=== PATIENT | female | born 1950 | race Caucasian/White ===

== ENCOUNTER 2024-08-11 08:01 | Day surgery (SDC) | payer MEDICARE, MEDICAID, SELFPAY ==
--- NOTE | 2024-07-24 15:26 | PC.NURSE ---
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 Pt daughter missed call from pre-op today from [facility]. I gave pt daughter (Liliya) phone number to pre-op to call them back, states she will call back tomorrow 07/25/24. Pt daughter is aware pt needs to hold pt's blood thinner, Eliquis, prior to surgery starting on 08/07/24, verbalized understanding of date to hold medication. When orders were send to [facility] I requested results be faxed back to PM office with fax number given.
[2024-07-25 13:58] VITALS: BMI 19.9
[2024-08-11 08:29] VITALS: BP 113/83; PULSE 102; RESP 17; TEMP 37.1; O2SAT 96
[2024-08-11] MEDS: LACTATED RINGERS 1000ML 1,000 ML 25 ML IV (08:38)
[2024-08-11] MEDS: VANCOMYCIN HCL 750 MG in 0.9 % SODIUM CHLORIDE 250 ML 125 MG IV (09:26)
--- NOTE | 2024-08-11 09:42 | EXP.ANES.CKL ---
[facility] Disclaimer: The information contained in this section may have been updated after the patient was seen, as this information can be updated by other users. Medical History Lung cancer HTN (hypertension) Dementia H/O deep venous thrombosis Surgical History History of hip surgery Family History Other Family history of cancer Social History Smoking Status: Current every day smoker alcohol intake: never substance use type: denies use current occupational status: disabled Travel in the last 8 weeks: None [facility] Anesthesia Checklist Patient Identification Patient Identification: Arm Band and Family Structural Data Admitted From: Home Planned Operative Procedure/s: T-12 Kyphoplasty Consent for Planned Operative Procedure(s) Verified: Yes Verified Documents: Surgical Consent and History and Physical NPO Status Verified Time NPO: 00:00 Additional verifications Anesthesia Reactions: No Hx Blood Transfusions: No Blood Transfusion Reaction: No Airway Assessment Mallampati Score:: Class II C-Spine Mobility Assessed: Yes TMJ Mobility Assessed: Yes Dentition: Good Dentition Neurological Assessment Level of Consciousness: Awake, Alert and Appropriate Anesthesia Plan Anesthesia Risk discussed: Yes Anesthesia Plan: Verified ASA Class: III Anesthesia Type: MAC
[2024-08-11] MEDS: LIDOCAINE 1% W/EPI 1:100,000 20ML VIAL 40 ML (11:11)
[2024-08-11 12:09] VITALS: BP 108/52; PULSE 101; RESP 22; TEMP 36.2; O2SAT 93
[2024-08-11 12:19] VITALS: BP 117/61; PULSE 80; RESP 20; O2SAT 96
[2024-08-11 12:29] VITALS: BP 142/67; PULSE 88; RESP 19; O2SAT 97
[2024-08-11 12:39] VITALS: BP 159/80; PULSE 85; RESP 19; O2SAT 95
[2024-08-11] MEDS: IOPAMIDOL-200 (41%);10ML VIAL 10 ML IV ×3 (13:22→13:23)
--- NOTE | 2024-08-11 13:48 | P.OP_ITS ---
Date of procedure: 08/11/24 Pre-op Diagnosis:: T12 compression fracture due to osteoporosis Post-op Diagnosis:: Same Procedure performed:: Balloon kyphoplasty to the T12 vertebral body Surgeon:: Arsenio Rogel MD DERMATOLOGY PHYSICIAN ASSISTANT:: Keith Nixon Anesthesia: MAC Estimated blood loss (mL): 5 Clinical Note:: This patient is a pleasant 74-year-old white female who we are seeing for acute T12 compression fracture. She has failed all previous conservative treatments. This was discovered on MRI. She presents for balloon kyphoplasty to the T12 vertebral body. Patient does have osteoporosis confirmed by DEXA scan. Operative findings:: None Operative note:: Informed consent was obtained and risks and benefits of the procedure was explained to the patient. Patient was taken to the OR and was placed prone on the procedure table. The patient was prepped and draped in sterile fashion. I used 2 C arms for AP and lateral view of the T12 vertebral body. The skin and subcutaneous tissues were anesthetized using lidocaine. Bone access trochars were placed through the LEFT and RIGHT pedicle and advanced into the vertebral body. After accessing the vertebral body a balloon was inserted first on the LEFT side followed by the RIGHT side with approximately 3 mL of contrast placed in each balloon with good insufflation. After adequate spread of contrast through the balloon, the balloons were deflated and cement was introduced first on the LEFT side with placement of approximately 3-1/2 mL of cement with good spread throughout the vertebral body and then on the RIGHT side was tracey roximately 3 1/2 mL cement with good spread throughout the vertebral body. There was no extrusion of cement through the lateral mark, anterior or posterior mark. Also no extrusion through superior or inferior mark. The bone access trochars were removed and dressing was placed. The patient was taken back to recovery in stable condition. She had good resolution of her back pain 5 minutes after the procedure. She tolerated the procedure well with no complications and was discharged home neurologically intact. Condition: stable Disposition: PACU Complications:: None
== END 2024-08-11 13:42 | disposition home or self-care (01) ==
PROVIDERS: PCP Family Medicine; Visit Provider Anesthesiology
PROC: (CPT 22513; principal; 2024-08-11 09:30)
DX: M80.08XA Age-related osteoporosis with current pathological fracture, vertebra(e), initial encounter for fracture (principal)
CPT/HCPCS: 22513; 96374; 96375; C1713; J3370; J7120; Q9966